=== PATIENT | female | born 1935 | race Caucasian/White ===

== ENCOUNTER 2016-10-16 19:36 | Emergency (ER) | payer MEDICARE ==
[~2016-10-16] VITALS: Ht 160 cm; Wt 63.5 kg
--- NOTE | ~2016-10-16 | CR127 ---
[facility] A Service of [facility] & [facility] RADIOLOGY TEXT RESULTS PATIENT: JOSLYN ROPER LOCATION: CFT[facility] : 37 UNIT #: [id number] AGE: [address]: Erma Whitaker APRN SEX: F ORDER DR: [id number] [facility] [address] [place], [place] [address] [id number] E MR#: [id number] #: [id number] NAME: JOSLYN ROPER. : 1935 SEX: F STUDY DATE/TIME: 10/16/2016 20:02 UNIT: [facility] ROOM: STUDY DESCRIPTION: CR Foot Complete Min 3 View Rt Attending Physician: Erma Whitaker A.P.R.N. Referring Physician: Sandeep Siddiqui M.D. Ordering Physician: Erma Whitaker A.P.R.N. Primary Care Physician: Sandeep Siddiqui M.D. MEDICAL IMAGING REPORT This report is preliminary unless electronic signature is present EXAM Right foot series dated 10/16/2016. COMPARISON Left foot series dated 01/10/2011. HISTORY Pain and swelling in the right foot since 10/15/2016. Patient dropped a concrete block on the foot/great toe. History of ovarian cancer. FINDINGS Three views of the right foot were obtained. There is a nondisplaced, horizontally oriented fracture involving the midshaft of the distal phalanx of the great toe. Fracture line does not appear to extend to the articulating surface in the interphalangeal joint. No dislocation is seen. Mild adjacent soft tissue swelling is probably present. There is diffuse bony osteopenia. Second to fifth digits do not demonstrate any obvious acute abnormality. Tarsals and distal tibia-fibula are grossly unremarkable. Tiny plantar calcaneal spur is present. Dictated by... Katerina Meek M.D. THIS IS AN ELECTRONICALLY VERIFIED REPORT Katerina Meek M.D. at 10/17/2016 6:26 PM CPR/psc TD: 10/17/2016 01:43 JOB #: [id number] MEDICAL IMAGING REPORT [facility] A Service of [facility] & [facility] RADIOLOGY TEXT RESULTS PATIENT: JOSLYN ROPER LOCATION: [facility] : 37 UNIT #: [id number] AGE: [address]: Erma Whitaker APRN SEX: F ORDER DR: Page 1 of 1 COPY
[~2016-10-16 19:36] MED LIST: ANTIVERT PO; BILBERRY1000 MG PO; DARVOCET-N 1001 TAB PO; INDAPAMIDE2.5 M1 PO; LIPITOR40 MG PO; LORTAB 5/500 TA1 TA1 PO; LUTEIN10 MG PO; PRED MILD5 ML OU; RANITIDINE HCL150 M1 PO; SYNTHROID PO; SYSTANE 0.3-0.415 ML OU; ZYRTEC PO; [UNRECOGNIZED DRUG - OTHER] PO
== END 2016-10-16 21:37 | disposition home or self-care (01) ==
LOC: CFTX 19:36 → CED 19:36 → CFTX 20:20
DX: S92.425A Nondisplaced fracture of distal phalanx of left great toe, initial encounter for closed fracture (principal); K21.9 Gastro-esophageal reflux disease without esophagitis; E78.5 Hyperlipidemia, unspecified; Z23 Encounter for immunization; W20.8XXA Other cause of strike by thrown, projected or falling object, initial encounter; Y92.89 Other specified places as the place of occurrence of the external cause
CPT/HCPCS: 29515; 73630; 90471; 90715; 99284